=== PATIENT | female | born 1985 ===

== ENCOUNTER 2017-03-02 07:26 | Emergency (ER) | payer SELFPAY ==
[2017-03-02 07:26] VITALS: BMI 19.3
[2017-03-02 07:54] VITALS: O2SAT 98
--- NOTE | 2017-03-02 08:15 | ED PDOC ---
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 She denies any vomiting or fevers. Patient reports symptoms started one year ago after she was diagnosed with a "bacteria" in her stomach for which she was prescribed zantac and omeprazole. She reports having a repeat abdominal ultrasound a few months ago which was negative. PMD: Dr. Daly Last Menstral Period: currently ongoing Past Medical History Reviewed: Historical Data, Nursing Documentation, Vital Signs Vital Signs: Last Vital Signs Temp 98.2 F 03/02/17 07:51 Pulse 89 03/02/17 07:51 Resp 18 03/02/17 07:51 BP 116/64 03/02/17 07:42 Pulse Ox 98 03/02/17 10:41 - Medical History PMH: Gastritis Other PMH: "bacteria" in her stomach - Surgical History Surgical History: No Surg Hx - Family History Family History: States: Unknown Family Hx - Social History Current smoker - smoking cessation education provided: No Alcohol: None Drugs: Denies - Immunization History Hx Tetanus Toxoid Vaccination: No Hx Influenza Vaccination: No Hx Pneumococcal Vaccination: No - Home Medications Home Medications: Ambulatory Orders Medication Instructions Recorded Famotidine [Pepcid] 20 mg PO BID #28 tab 01/21/16 Naproxen [Naprosyn] 500 mg PO BID PRN #20 tablet 01/21/16 Ondansetron [Zofran] 4 mg PO Q8H #9 tab 01/21/16 Meclizine HCl [Antivert] 25 mg PO Q8 PRN #30 tablet 02/03/16 traMADol [Ultram] 50 mg PO Q8 #10 tab 02/13/16 Meclizine [Meclizine*] 25 mg PO Q8 #15 tab 05/18/16 Pantoprazole Sodium [Protonix] 40 mg PO DAILY #30 tablet. 05/18/16 Ciprofloxacin HCl [Cipro] 250 mg PO BID #6 tablet 08/07/16 Ondansetron [Zofran] 4 mg PO Q6H PRN #10 tab 08/07/16 Ranitidine HCl [Zantac] 150 mg PO BID #20 tablet 08/07/16 Dicyclomine [Dicyclomine HCl] 10 mg PO TID PRN #12 cap 03/02/17 - Allergies Allergies/Adverse Reactions: Allergies Allergy/AdvReac Type Severity Reaction Status Date / Time No Known Allergies Allergy Verified 05/18/16 07:56 Review of Systems ROS Statement: Except As Marked, All Systems Reviewed And Found Negative Constitutional: Negative for: Fever, Chills Gastrointestinal: Positive for: Nausea, Abdominal Pain. Negative for: Vomiting Physical Exam - Reviewed Nursing Documentation Reviewed: Yes Vital Signs Reviewed: Yes - Physical Exam Appears: Positive for: Well, Non-toxic, No Acute Distress Head Exam: Positive for: ATRAUMATIC, NORMAL INSPECTION, NORMOCEPHALIC Skin: Positive for: Normal Color, Warm, Dry Eye Exam: Positive for: Normal appearance ENT: Positive for: Normal ENT Inspection Neck: Positive for: Normal, Painless ROM, Supple Cardiovascular/Chest: Positive for: Regular Rate, Rhythm Respiratory: Positive for: CNT, Normal Breath Sounds Gastrointestinal/Abdominal: Positive for: Normal Exam, Bowel Sounds, Soft. Negative for: Tenderness, Organomegaly, Mass, Distended, Guarding, Rebound Back: Positive for: Normal Inspection Extremity: Positive for: Normal ROM Neurologic/Psych: Positive for: Alert, Oriented - Laboratory Results Result Diagrams: 03/02/17 09:09 03/02/17 09:09 - ECG O2 Sat by Pulse Oximetry: 98 (RA) Pulse Ox Interpretation: Normal Medical Decision Making Medical Decision Making: Initial Impression: Epigastric Pain Initial Plan: * lipase * labs * bentyl 10 mg PO * pepcid 20 mg IV * US abdomen complete * reevaluation Previous charts indicate an abdominal US and blood work preformed in August which were both negative for any pathology. 10:29 US abdomen FINDINGS: LIVER: Measures 15.0 cm. Diffusely increased echogenicity of the liver parenchyma. Consistent with fatty infiltration. Smooth contour. No mass. No biliary dilatation. GALLBLADDER: Unremarkable. No gallstones. COMMON BILE DUCT: Measures 4 mm. No stones. No dilatation. PANCREAS: Unremarkable as visualized. No mass. No ductal dilatation. RIGHT KIDNEY: Measures 10.2cm. Normal echogenicity. No calculus, mass, or hydronephrosis. LEFT KIDNEY: Measures 10.1cm. Normal echogenicity. No calculus, mass, or hydronephrosis. SPLEEN: Normal in size and contour. No mass. AORTA: No aneurysmal dilatation. IVC: Unremarkable. OTHER FINDINGS: None. IMPRESSION: Fatty infiltration of the liver. No evidence of biliary obstruction. No evidence of cholelithiasis or cholecystitis. 11:12 reevaluaiton: patient reports symptoms have improved at this time. She is stable for discharge and will be given a prescription for bentyl along with a referral to see Dr. Meyer. Scribe Attestation: Documented by Christa Perez, acting as a scribe for José Trejo D.O. Provider Scribe Attestation: All medical record entries made by the Scribe were at my direction and personally dictated by me. I have reviewed the chart and agree that the record accurately reflects my personal performance of the history, physical exam, medical decision making, and the department course for this patient. I have also personally directed, reviewed, and agree with the discharge instructions and disposition. Disposition - Clinical Impression Clinical Impression: Abdominal pain Counseled Patient/Family Regarding: Studies Performed, Diagnosis, Need For Followup, Rx Given - Disposition Referrals: Mitch GARCIA,MD Leon [Medical Doctor] - Disposition: Routine/Home Disposition Time: 11:13 Condition: STABLE Additional Instructions: Return to ER for any worse or new symptoms.. Prescriptions: Dicyclomine [Dicyclomine HCl] 10 mg PO TID PRN #12 cap PRN Reason: Gi Distress Instructions: Abdominal Pain (ED), Epigastric Pain (ED) Print Language: SAO TOMEAN
[2017-03-02 09:15] LABS: BASO # 0.1 K/uL (0.0-0.2); BASO % 0.7 % (0.0-2.0); EOS # 0.7 K/uL (0.0-0.7); LYMPH # 2.6 K/uL (1.0-4.3); LYMPH % 27.6 % (20.0-40.0); MEAN CELL VOLUME 84.8 fl (81.0-99.0); MEAN CORPUSCULAR HEMOGLOBIN 27.5 pg (27.0-31.0); MEAN CORPUSCULAR HGB CONC 32.5 g/dL (33.0-37.0); MEAN PLATELET VOLUME 9.5 fl (7.2-11.7); MONO # 0.5 K/uL (0.0-0.8); MONO % 5.1 % (0.0-10.0); NEUT # 5.6 K/uL (1.8-7.0); NEUT % 59.6 % (50.0-75.0); RED CELL DISTRIBUTION WIDTH 13.7 % (11.5-14.5); WHITE BLOOD COUNT 9.4 K/uL (4.8-10.8)
[2017-03-02 09:45] LABS: ALB/GLOB RATIO 1.4 (1.0-2.1); ALKALINE PHOSPHATASE 51 U/L (38-126); ALT/SGPT 23 U/L (9-52); AST/SGOT 19 U/L (14-36); BILIRUBIN,TOTAL 0.4 mg/dl (0.2-1.3); BLOOD UREA NITROGEN 6 mg/dl (7-17); CALCIUM 9.5 mg/dL (8.4-10.2); CARBON DIOXIDE 21 mmol/L (22-30); CHLORIDE 108 mmol/L (98-107); GFR AFRICAN-AMERICAN > 60; GLUCOSE,RANDOM 95 mg/dL (65-105); LIPASE 144 U/L (23-300); POTASSIUM 4.1 MMOL/L (3.6-5.0); SODIUM 141 mmol/l (132-148); TOTAL PROTEIN 7.3 G/DL (6.3-8.2)
--- NOTE | 2017-03-02 10:31 | US ---
HISTORY: upper abd pain COMPARISON: None. TECHNIQUE: Sonographic evaluation of the abdomen. FINDINGS: LIVER: Measures 15.0 cm. Diffusely increased echogenicity of the liver parenchyma. Consistent with fatty infiltration. Smooth contour. No mass. No biliary dilatation. GALLBLADDER: Unremarkable. No gallstones. COMMON BILE DUCT: Measures 4 mm. No stones. No dilatation. PANCREAS: Unremarkable as visualized. No mass. No ductal dilatation. RIGHT KIDNEY: Measures 10.2cm. Normal echogenicity. No calculus, mass, or hydronephrosis. LEFT KIDNEY: Measures 10.1cm. Normal echogenicity. No calculus, mass, or hydronephrosis. SPLEEN: Normal in size and contour. No mass. AORTA: No aneurysmal dilatation. IVC: Unremarkable. OTHER FINDINGS: None. IMPRESSION: Fatty infiltration of the liver. No evidence of biliary obstruction. No evidence of cholelithiasis or cholecystitis.
[2017-03-02 11:28] VITALS: BP 110/76; PULSE 78; RESP 19; TEMP 97.6
== END 2017-03-02 11:28 | disposition home or self-care (01) ==
LOC: H.ER 07:26
DX: R10.13 Epigastric pain (principal); K76.0 Fatty (change of) liver, not elsewhere classified

== ENCOUNTER 2017-08-14 09:47 | Day surgery (SDC) | payer SELFPAY ==
[2017-08-14] MEDS ORDERED: Lactated Ringer's 1,000 ML IV ONE (10:48)
[2017-08-14] MEDS ORDERED: Lidocaine 2% MPF (5 ml) Inj ONE (11:45)
[2017-08-14] MEDS ORDERED: Propofol 10 mg/ml Inj (20 ML) ONE (11:45)
[2017-08-14 12:25] VITALS: BP 97/69; PULSE 73; RESP 17; TEMP 97.2; O2SAT 99
[2017-08-14 12:40] VITALS: BMI 20.2
== END 2017-08-14 12:39 | disposition home or self-care (01) ==
LOC: H.ENDO 09:47
PROVIDERS: ATTEND Internal Medicine Gastroenterology
DX: K21.9 Gastro-esophageal reflux disease without esophagitis (principal); K29.70 Gastritis, unspecified, without bleeding; B96.81 Helicobacter pylori [H. pylori] as the cause of diseases classified elsewhere
CPT/HCPCS: 43239; 88305; J2704; J7120

== ENCOUNTER 2017-10-24 18:02 | Emergency (ER) | payer SELFPAY ==
[2017-10-24 18:02] VITALS: BMI 20.2
[2017-10-24 18:34] VITALS: RESP 18; O2SAT 99
[2017-10-24] MEDS ORDERED: Sodium Chloride 0.9% 1,000 ML IV STA (19:58)
--- NOTE | 2017-10-24 20:09 | ED PDOC ---
HPI: Abdomen Chief Complaint (Nursing): Abdominal Pain History Per: Patient History/Exam Limitations: no limitations Onset/Duration Of Symptoms: Days Outside of [place] travel?: No Current Symptoms Are (Timing): Still Present Location Of Pain/Discomfort: Epigastric Quality Of Discomfort: Cramping Associated Symptoms: Nausea, Vomiting. denies: Fever, Chills, Diarrhea Exacerbating Factors: None Additional Complaint(s): Hx of recently diagnosed "bacterial infection in stomach" diagnosed on colonsocpy (on PPI, flagly, bismuth) presenting with nausea and vomiting, states that she has been vomiting for the past 2 days, 6-7 episodes, food colored, no blood. States her stools are darker since taking the bismuth, but denies loose or poorly formed stools. Denies fevers, chills. Past Medical History Reviewed: Historical Data, Nursing Documentation, Vital Signs Vital Signs: Last Vital Signs Temp 98.5 F 10/24/17 23:28 Pulse 56 L 10/24/17 23:28 Resp 18 10/24/17 23:28 BP 126/78 10/24/17 23:28 Pulse Ox 99 10/24/17 23:28 - Medical History PMH: Gastritis Denies: Chronic Kidney Disease - Family History Family History: States: Unknown Family Hx - Immunization History Hx Tetanus Toxoid Vaccination: No Hx Influenza Vaccination: No Hx Pneumococcal Vaccination: No - Home Medications Home Medications: Ambulatory Orders Medication Instructions Recorded Famotidine [Pepcid] 20 mg PO BID #28 tab 01/21/16 Naproxen [Naprosyn] 500 mg PO BID PRN #20 tablet 01/21/16 Ondansetron [Zofran] 4 mg PO Q8H #9 tab 01/21/16 Meclizine HCl [Antivert] 25 mg PO Q8 PRN #30 tablet 02/03/16 traMADol [Ultram] 50 mg PO Q8 #10 tab 02/13/16 Meclizine [Meclizine*] 25 mg PO Q8 #15 tab 05/18/16 Pantoprazole Sodium [Protonix] 40 mg PO DAILY #30 tablet. 05/18/16 Ciprofloxacin HCl [Cipro] 250 mg PO BID #6 tablet 08/07/16 Ondansetron [Zofran] 4 mg PO Q6H PRN #10 tab 08/07/16 Ranitidine HCl [Zantac] 150 mg PO BID #20 tablet 08/07/16 Dicyclomine [Dicyclomine HCl] 10 mg PO TID PRN #12 cap 03/02/17 Ondansetron [Zofran] 4 mg PO Q8H #12 tab 10/24/17 - Allergies Allergies/Adverse Reactions: Allergies Allergy/AdvReac Type Severity Reaction Status Date / Time No Known Allergies Allergy Verified 10/24/17 18:30 Review of Systems ROS Statement: Except As Marked, All Systems Reviewed And Found Negative Gastrointestinal: Positive for: Nausea, Vomiting, Abdominal Pain Physical Exam - Reviewed Nursing Documentation Reviewed: Yes Vital Signs Reviewed: Yes - Physical Exam Appears: Positive for: Well, Non-toxic, No Acute Distress Head Exam: Positive for: ATRAUMATIC, NORMAL INSPECTION, NORMOCEPHALIC Skin: Positive for: Normal Color, Warm, DRY Eye Exam: Positive for: EOMI, Normal appearance, PERRL ENT: Positive for: Normal ENT Inspection Neck: Positive for: Normal, Painless ROM Cardiovascular/Chest: Positive for: Regular Rate, Rhythm Respiratory: Positive for: CNT, Normal Breath Sounds Gastrointestinal/Abdominal: Positive for: Normal Exam, Soft, Tenderness ( epigastric, mild). Negative for: Organomegaly, Distended, Guarding, Rebound Back: Positive for: Normal Inspection Extremity: Positive for: Normal ROM Neurologic/Psych: Positive for: Alert, Oriented - Laboratory Results Result Diagrams: 10/24/17 20:47 10/24/17 20:47 - ECG O2 Sat by Pulse Oximetry: 99 Pulse Ox Interpretation: Normal Medical Decision Making Medical Decision Makin:15PM A/P: Hx of gastritis and recently diagnosed bacterial infection on ABx p/w nausea and vomiting -patient is very well appearing, comfortable, normal vitals -epigastric tendreness, mild, could be 2/2 to gastritis and related to flagyl -will check basic labs, provide fluids, pepcid, and zofran -re-eval after 11:15pm -Patient is feeling much better, tolerating PO, vitals improved -Patient concerned its the flagyl that is making her sick, states she has only one more day of it, strongly encouarged patient to finish course if feeling well tomorrow -will prescribe zofran, encourage fluids, return precautions discussed Disposition - Clinical Impression Clinical Impression: Gastroenteritis - Disposition Referrals: [facility] [Outside] Disposition: Routine/Home Disposition Time: 23:47 Condition: IMPROVED Prescriptions: Ondansetron [Zofran] 4 mg PO Q8H #12 tab Instructions: Gastritis (DC), Gastroenteritis (ED) Forms: [facility] (Serbian) Print Language: SAMMARINESE
[2017-10-24 20:58] LABS: BASO % 0.5 % (0.0-2.0); EOS # 0.4 K/uL (0.0-0.7); EOS % 4.6 % (0.0-4.0); HEMOGLOBIN 12.8 g/dL (12.0-16.0); LYMPH # 3.1 K/uL (1.0-4.3); LYMPH % 34.3 % (20.0-40.0); MEAN CELL VOLUME 84.2 fl (81.0-99.0); MEAN CORPUSCULAR HEMOGLOBIN 27.8 pg (27.0-31.0); MEAN PLATELET VOLUME 9.2 fl (7.2-11.7); MONO # 0.7 K/uL (0.0-0.8); MONO % 7.5 % (0.0-10.0); NEUT # 4.8 K/uL (1.8-7.0); NEUT % 53.1 % (50.0-75.0); NRBC % 0.1 % (0.0-0.0); RBC 4.61 Mil/uL (3.80-5.20); WHITE BLOOD COUNT 9.1 K/uL (4.8-10.8)
[2017-10-24 21:31] LABS: ALB/GLOB RATIO 1.1 (1.0-2.1); ALBUMIN 3.9 g/dL (3.5-5.0); ALT/SGPT 28 U/L (9-52); AST/SGOT 48 U/L (14-36); BILIRUBIN,DIRECT 0.2 mg/ml (0.0-0.4); BLOOD UREA NITROGEN 10 mg/dl (7-17); CALCIUM 9.4 mg/dL (8.4-10.2); GFR AFRICAN-AMERICAN > 60; GFR NON-AFRICAN AMERICAN > 60; LIPASE 115 U/L (23-300)
[2017-10-24 23:29] VITALS: BP 126/78; PULSE 56; TEMP 98.5
== END 2017-10-24 23:29 | disposition home or self-care (01) ==
LOC: H.ER 18:02
DX: K52.9 Noninfective gastroenteritis and colitis, unspecified (principal)
CPT/HCPCS: 80048; 80076; 81025; 83605; 83690; 85025; 96374; 96375; 99284; J2405; J7040

== ENCOUNTER 2018-08-08 14:01 | Emergency (ER) | payer OTHER ==
[2018-08-08 14:01] VITALS: BMI 20.2
[2018-08-08 14:34] VITALS: PULSE 75; RESP 18; TEMP 97.9
--- NOTE | 2018-08-08 15:40 | RAD ---
Date of service: 08/08/2018 PROCEDURE: Right Knee Radiographs. HISTORY: s/p trauma COMPARISON: None. FINDINGS: BONES: Normal. No fracture. JOINTS: Normal. No osteoarthritis. JOINT EFFUSION: None. OTHER FINDINGS: None. IMPRESSION: Normal radiographs of the right knee.
--- NOTE | 2018-08-08 16:22 | ED PDOC ---
Lower Extremity Pain/Injury Time Seen by Provider: 08/08/18 14:47 Chief Complaint (Nursing): Lower Extremity Problem/Injury Chief Complaint (Provider): Knee Pain s/p Fall History Per: Patient, Sales And Distribution Clerk History/Exam Limitations: no limitations Onset/Duration Of Symptoms: Hrs (two) Current Symptoms Are (Timing): Still Present Severity: Mild (Pt presents to the ED s/p a fall at work during which she experienced axial trauma to her right knee, at the patella. Pt denies any twisting or turning of the knee; pt denies other injuries, specfically any injuries to her hands, wrists or shoulders. Pt denies syncope or LOC) Past Medical History Reviewed: Historical Data, Nursing Documentation, Vital Signs Vital Signs: Last Vital Signs Temp 97.9 F 08/08/18 14:31 Pulse 75 08/08/18 14:31 Resp 18 08/08/18 14:31 BP Pulse Ox 98 08/08/18 14:31 - Medical History PMH: Gastritis Denies: Chronic Kidney Disease - Family History Family History: States: Unknown Family Hx - Immunization History Hx Tetanus Toxoid Vaccination: No Hx Influenza Vaccination: No Hx Pneumococcal Vaccination: No - Home Medications Home Medications: Ambulatory Orders Medication Instructions Recorded Famotidine [Pepcid] 20 mg PO BID #28 tab 01/21/16 Ondansetron [Zofran] 4 mg PO Q8H #9 tab 01/21/16 RX: Naproxen [Naprosyn] 500 mg PO BID PRN #20 tablet 01/21/16 Meclizine HCl [Antivert] 25 mg PO Q8 PRN #30 tablet 02/03/16 RX: traMADol [Ultram] 50 mg PO Q8 #10 tab 02/13/16 Citalopram [celeXA] 20 mg PO 02/15/16 Nitrofurantoin Macrocrystals 1 cap PO BID #10 cap 02/15/16 [Macrobid] Ondansetron [Zofran Odt] 1 - 2 tab PO .Q4-6H PRN #20 odt 02/15/16 RX: Alprazolam 0.5 mg PO PRN 02/15/16 Pantoprazole Sodium [Protonix] 40 mg PO DAILY #30 tablet. 05/18/16 RX: Meclizine [Meclizine*] 25 mg PO Q8 #15 tab 05/18/16 Ciprofloxacin HCl [Cipro] 250 mg PO BID #6 tablet 08/07/16 Ondansetron [Zofran] 4 mg PO Q6H PRN #10 tab 08/07/16 Ranitidine HCl [Zantac] 150 mg PO BID #20 tablet 08/07/16 Dicyclomine [Dicyclomine HCl] 10 mg PO TID PRN #12 cap 03/02/17 Ondansetron [Zofran] 4 mg PO Q8H #12 tab 10/24/17 RX: Diclofenac Potassium 50 mg PO BID #20 tablet 08/08/18 - Allergies Allergies/Adverse Reactions: Allergies Allergy/AdvReac Type Severity Reaction Status Date / Time No Known Allergies Allergy Unverified 08/05/18 14:22 Review of Systems ROS Statement: Except As Marked, All Systems Reviewed And Found Negative Musculoskeletal: Positive for: Leg Pain, Other (knee pain) Physical Exam - Reviewed Nursing Documentation Reviewed: Yes Vital Signs Reviewed: Yes - Physical Exam Appears: Positive for: Well, Non-toxic, No Acute Distress. Negative for: Uncomfortable Head Exam: Positive for: ATRAUMATIC, NORMAL INSPECTION Skin: Positive for: Normal Color, Warm, Dry. Negative for: Diaphoresis, Pallor, Rash Eye Exam: Positive for: Normal appearance Neck: Positive for: Normal, Painless ROM, Supple. Negative for: Decreased ROM Cardiovascular/Chest: Positive for: Regular Rate, Rhythm Respiratory: Positive for: Normal Breath Sounds Pulses-Carotid (L): 2+ Pulses-Carotid (R): 2+ Pulses-Post. Tibialis (L): 2+ Pulses-Post. Tibialis (R): 2+ Pulses-Radial (L): 2+ Pulses-Radial (R): 2+ Back: Positive for: Normal Inspection. Negative for: L CVA Tenderness, R CVA T enderness Extremity: Positive for: Tenderness (at right knee/patella), Capillary Refill (<2seconds). Negative for: Normal ROM (Reduced active ROM in right knee; ), Pedal Edema, Deformity, Swelling (There is no noticable edema or efusion; th evargus an dvalgus tests anterior and poserior drawer test and the appley grind are each negative) - ECG O2 Sat by Pulse Oximetry: 98 Medical Decision Making Medical Decision Making: XR - right knee Normal knee without pathology Disposition - Clinical Impression Clinical Impression: Knee pain, Knee injury Doctor Will See Patient In The: Office Counseled Patient/Family Regarding: Diagnosis, Need For Followup, Rx Given - Disposition Referrals: [facility] [place] [Outside] [facility] [place] [Outside] Disposition: Routine/Home Disposition Time: 16:51 Condition: STABLE Prescriptions: RX: Diclofenac Potassium 50 mg PO BID #20 tablet Instructions: Knee Sprain (DC), Patellofemoral Pain (DC), Knee Pain Forms: [employer] (Mohawk), [employer] (Bangladeshi) Print Language: NAURUAN
[2018-08-08 17:20] VITALS: O2SAT 99
== END 2018-08-08 17:20 | disposition home or self-care (01) ==
LOC: H.ER 14:01
DX: S89.91XA Unspecified injury of right lower leg, initial encounter (principal); W19.XXXA Unspecified fall, initial encounter; Y99.0 Civilian activity done for income or pay

== ENCOUNTER 2018-09-18 08:08 | Emergency (ER) | payer OTHER ==
[2018-09-18 08:19] VITALS: RESP 18; TEMP 98.1; O2SAT 100
[2018-09-18 08:20] VITALS: BMI 20.4
[2018-09-18] MEDS ORDERED: Famotidine 40 MG/5 ML PO STA (08:55)
[2018-09-18] MEDS: Sodium Chloride 0.9% 1,000 ML IV STA (09:17)
--- NOTE | 2018-09-18 09:35 | ED PDOC ---
HPI: General Adult Additional History Per: Patient Additional Complaint(s): This is 33 y/o F with PM of gastritis and h.Pylori comes to the ER c/o 1 week hx of worsening epigastric and chest discomfort/pain. Pain comes and goes, gets worse with certain foods, 7/10 pain, pressure like, nonradiating, denies any SOB. + dizziness and weakness. Denies any blurred vision, f/d/c or dysuria. + nausea. pmh: gastritis and h.Pylori psh: Denies Allg: KDA Meds: Denies Fh: + DM, no heart disease or strokes in family Sh: Denies smoking/alcohol or drug use ROS: As per hpi <Madiha Coto - Last Filed: 09/18/18 09:43> <Nils Robles - Last Filed: 09/18/18 10:44> Time Seen by Provider: 09/18/18 08:20 Chief Complaint (Nursing): Abdominal Pain Supervising Attending Note - Supervising Attending Note The Documented history was done by the: Physician Orthotic Technician The documented physical exam was done by the: Physician Orthotic Technician The documented procedures were done by the: Physician Orthotic Technician - Attestation: I have personally seen and examined this patient.: Yes I have fully participated in the care of the patient.: Yes - Notes: Notes:: abd pain similar to previous goes to chest <Nils Robles - Last Filed: 09/18/18 10:44> Past Medical History Vital Signs: Last Vital Signs Temp 98.1 F 09/18/18 08:18 Pulse 80 09/18/18 08:18 Resp 18 09/18/18 08:18 BP 109/64 09/18/18 08:18 Pulse Ox 100 09/18/18 08:18 - Medical History PMH: Gastritis Denies: Chronic Kidney Disease - Surgical History Surgical History: Endoscopy - Family History Family History: States: Unknown Family Hx - Immunization History Hx Tetanus Toxoid Vaccination: No Hx Influenza Vaccination: No Hx Pneumococcal Vaccination: No <Madiha Coto - Last Filed: 09/18/18 09:43> Reviewed: Nursing Documentation, Vital Signs Vital Signs: Last Vital Signs Temp 98.1 F 09/18/18 08:18 Pulse 80 09/18/18 08:18 Resp 18 09/18/18 08:18 BP 109/64 09/18/18 08:18 Pulse Ox 100 09/18/18 09:51 <Nils Robles M - Last Filed: 09/18/18 10:44> - Home Medications Home Medications: Ambulatory Orders Medication Instructions Recorded Famotidine [Pepcid] 20 mg PO BID #28 tab 01/21/16 Naproxen [Naprosyn] 500 mg PO BID PRN #20 tablet 01/21/16 Ondansetron [Zofran] 4 mg PO Q8H #9 tab 01/21/16 Meclizine HCl [Antivert] 25 mg PO Q8 PRN #30 tablet 02/03/16 traMADol [Ultram] 50 mg PO Q8 #10 tab 02/13/16 Alprazolam 0.5 mg PO PRN 02/15/16 Citalopram [celeXA] 20 mg PO 02/15/16 Nitrofurantoin Macrocrystals 1 cap PO BID #10 cap 02/15/16 [Macrobid] Ondansetron [Zofran Odt] 1 - 2 tab PO .Q4-6H PRN #20 odt 02/15/16 Meclizine [Meclizine*] 25 mg PO Q8 #15 tab 05/18/16 Pantoprazole Sodium [Protonix] 40 mg PO DAILY #30 tablet. 05/18/16 Ciprofloxacin HCl [Cipro] 250 mg PO BID #6 tablet 08/07/16 Ondansetron [Zofran] 4 mg PO Q6H PRN #10 tab 08/07/16 Ranitidine HCl [Zantac] 150 mg PO BID #20 tablet 08/07/16 Dicyclomine [Dicyclomine HCl] 10 mg PO TID PRN #12 cap 03/02/17 Ondansetron [Zofran] 4 mg PO Q8H #12 tab 10/24/17 Diclofenac Potassium 50 mg PO BID #20 tablet 08/08/18 Famotidine [Pepcid] 20 mg PO DAILY PRN #6 tab 09/18/18 - Allergies Allergies/Adverse Reactions: Allergies Allergy/AdvReac Type Severity Reaction Status Date / Time No Known Allergies Allergy Unverified 08/05/18 14:22 Review of Systems Constitutional: Negative for: Fever, Chills, Sweats Eyes: Negative for: Pain, Vision Change, Conjunctivae Inflammation ENT: Negative for: Ear Pain, Nose Pain Cardiovascular: Positive for: Chest Pain. Negative for: Palpitations, Orthopnea Respiratory: Negative for: Cough, Shortness of Breath, Hemoptysis Gastrointestinal: Positive for: Nausea. Negative for: Vomiting Genitourinary Female: Negative for: Dysuria, Frequency Musculoskeletal: Negative for: Neck Pain, Shoulder Pain, Arm Pain Skin: Negative for: Rash Neurological: Positive for: Weakness, Dizziness. Negative for: Numbness, Confusion Psych: Positive for: Anxiety <Madiha Coto - Last Filed: 09/18/18 09:43> Physical Exam - Physical Exam Appears: Positive for: No Acute Distress Head Exam: Positive for: ATRAUMATIC, NORMAL INSPECTION Skin: Positive for: Normal Color Eye Exam: Positive for: Normal appearance ENT: Positive for: Normal ENT Inspection Neck: Positive for: Normal, Painless ROM Cardiovascular/Chest: Positive for: Regular Rate, Rhythm, Chest Non Tender. Negative for: Edema, Murmur, Bradycardia, Tachycardia, Irregularly Irregular Respiratory: Positive for: Normal Breath Sounds. Negative for: Decreased Breath Sounds, Accessory Muscle Use, Crackles, Rales, Rhonchi, Stridor, Wheezing Gastrointestinal/Abdominal: Positive for: Tenderness (epigastric ) Extremity: Positive for: Normal ROM. Negative for: Tenderness, Pedal Edema, Calf Tenderness Neurological/Psych: Positive for: Awake, Alert, Normal Tone, Oriented, rehabilitation psychologist II- XII <Madiha Coto - Last Filed: 09/18/18 09:43> - Physical Exam Respiratory: Positive for: Normal Breath Sounds Gastrointestinal/Abdominal: Positive for: Tenderness <Nils Robles - Last Filed: 09/18/18 10:44> - ECG O2 Sat by Pulse Oximetry: 100 - Progress ED Course And Treament: A/P; 33 y/o F with PM of gastritis and h.Pylori comes to the ER c/o 1 week hx of worsening epigastric and chest discomfort/pain. - CBC - CMP - Trop - UA - EKG - IVF - Pepcid 40mg PO - Zofran 4mg IV Case discussed with Dr. Robles, agrees with plan <Madiha Coto - Last Filed: 09/18/18 09:43> - Laboratory Results Result Diagrams: 03/20/19 09:10 09/18/18 09:10 Lab Results: Troponin I < 0.0120 ng/mL (0.00-0.120) 09/18/18 09:10 Total Bilirubin 0.3 mg/dl (0.2-1.3) 09/18/18 09:10 AST 35 U/L (14-36) 09/18/18 09:10 ALT 26 U/L (9-52) 09/18/18 09:10 Alkaline Phosphatase 63 U/L (38-126) 09/18/18 09:10 Total Protein 7.7 G/DL (6.3-8.2) 09/18/18 09:10 Albumin 4.2 g/dL (3.5-5.0) 09/18/18 09:10 Globulin 3.5 gm/dL (2.2-3.9) 09/18/18 09:10 Albumin/Globulin Ratio 1.2 (1.0-2.1) 09/18/18 09:10 Urine Color Yellow (YELLOW) 09/18/18 09:10 Urine Clarity Cloudy (Clear) 09/18/18 09:10 Urine pH 6.0 (5.0-8.0) 09/18/18 09:10 Ur Specific [place] 1.017 (1.003-1.030) 09/18/18 09:10 Urine Protein Negative mg/dL (NEGATIVE) 09/18/18 09:10 Urine Glucose (UA) Neg mg/dL (NEGATIVE) 09/18/18 09:10 Urine Ketones Negative mg/dL (NEGATIVE) 09/18/18 09:10 Urine Blood Negative (NEGATIVE) 09/18/18 09:10 Urine Nitrate Negative (NEGATIVE) 09/18/18 09:10 Urine Bilirubin Negative (NEGATIVE) 09/18/18 09:10 Urine Urobilinogen 0.2-1.0 mg/dL (0.2-1.0) 09/18/18 09:10 Ur Leukocyte Esterase Large Omer/uL (Negative) 09/18/18 09:10 Urine Microscopic WBC 51 /hpf (0-5) H 09/18/18 09:10 Ur Squamous Epith Cells 5 /hpf (0-5) 09/18/18 09:10 Amorphous Sediment Rare /ul (<OCC) H 09/18/18 09:10 - ECG ECG: Positive for: Interpreted By Me, Viewed By Me ECG Rhythm: Positive for: Normal QRS, Normal ST Segment, Sinus Rhythm - Radiology X-Ray: Interpreted by Me, Viewed By Me X-Ray Interpretation: No Acute Disease - Progress ED Course And Treament: 1042: Stable. AAOx3. Tolerated PO. FU with pcp. Pain free. <Nils Robles - Last Filed: 09/18/18 10:44> Disposition <Madiha Coto - Last Filed: 09/18/18 09:43> - Patient ED Disposition Is Patient to be Admitted: No Counseled Patient/Family Regarding: Studies Performed, Diagnosis, Need For Followup, Rx Given - Disposition Disposition: Routine/Home Disposition Time: 10:43 <Nils Robles - Last Filed: 09/18/18 10:44> - Clinical Impression Clinical Impression: Abdominal discomfort - Disposition Referrals: [facility] [Outside] - 09/19/18 Condition: STABLE Additional Instructions: Return if not better in 3 days. Prescriptions: Famotidine [Pepcid] 20 mg PO DAILY PRN #6 tab PRN Reason: Pain Instructions: Stomach Ache and Stomach Upset Forms: [facility] ED School/Work Excuse Print Language: PAKISTANI
[2018-09-18 09:47] LABS: BASO # 0.1 K/uL (0.0-0.2); BASO % 0.8 % (0.0-2.0); EOS # 0.4 K/uL (0.0-0.7); EOS % 5.4 % (0.0-4.0); HEMOGLOBIN 12.4 g/dL (12.0-16.0); LYMPH # 1.8 K/uL (1.0-4.3); LYMPH % 24.4 % (20.0-40.0); MEAN CELL VOLUME 84.2 fl (81.0-99.0); MEAN CORPUSCULAR HEMOGLOBIN 26.8 pg (27.0-31.0); MEAN CORPUSCULAR HGB CONC 31.8 g/dL (33.0-37.0); MEAN PLATELET VOLUME 9.3 fl (7.2-11.7); MONO # 0.4 K/uL (0.0-0.8); NEUT # 4.6 K/uL (1.8-7.0); NEUT % 63.4 % (50.0-75.0); NRBC % 0.1 % (0.0-0.0); RBC 4.63 Mil/uL (3.80-5.20); RED CELL DISTRIBUTION WIDTH 13.1 % (11.5-14.5); WHITE BLOOD COUNT 7.2 K/uL (4.8-10.8)
[2018-09-18 09:53] LABS: SQUAMOUS EPITHIAL 5 /hpf (0-5); URINE AMORPHOUS SEDIMENT RARE /ul (<OCC); URINE BILIRUBIN NEGATIVE (NEGATIVE); URINE BLOOD NEGATIVE (NEGATIVE); URINE CLARITY CLOUDY (Clear); URINE COLOR YELLOW (YELLOW); URINE GLUCOSE (UA) NEG (NEGATIVE); URINE LEUKOCYTE ESTERASE LARGE Leu/uL (Negative); URINE PROTEIN NEGATIVE (NEGATIVE); URINE UROBILINOGEN 0.2-1.0 mg/dL (0.2-1.0)
[2018-09-18 10:00] LABS: ALB/GLOB RATIO 1.2 (1.0-2.1); ALBUMIN 4.2 g/dL (3.5-5.0); ALT/SGPT 26 U/L (9-52); AST/SGOT 35 U/L (14-36); BLOOD UREA NITROGEN 12 mg/dl (7-17); CALCIUM 9.7 mg/dL (8.4-10.2); GFR NON-AFRICAN AMERICAN > 60
--- NOTE | 2018-09-18 11:01 | RAD ---
Date of service: 09/18/2018 HISTORY: chest pain COMPARISON: No prior. FINDINGS: LUNGS: No active pulmonary disease. PLEURA: No significant pleural effusion identified, no pneumothorax apparent. CARDIOVASCULAR: No aortic atherosclerotic calcification present. Normal cardiac size. No pulmonary vascular congestion. OSSEOUS STRUCTURES: No significant abnormalities. VISUALIZED UPPER ABDOMEN: Normal. OTHER FINDINGS: None. IMPRESSION: No active disease.
[2018-09-18 11:02] VITALS: BP 110/70; PULSE 72
--- NOTE | 2018-09-18 17:35 | CARD ---
APPROVED REPORT Date of service: 09/18/2018 EKG Measurement Heart [id number] <Conclusion> Normal sinus rhythm Normal ECG
== END 2018-09-18 11:00 | disposition home or self-care (01) ==
LOC: H.ER 08:08
DX: R10.13 Epigastric pain (principal)
CPT/HCPCS: 71045; 80053; 81003; 81025; 84484; 85025; 93005; 96374; 99284; J2405; J7030